=== PATIENT | male | born 1940 ===

== ENCOUNTER 2018-05-25 11:23 | Outpatient (CLI) | payer MEDICARE | END 2018-05-25 11:24 | disposition home or self-care (01) | LOC: C.LAB 11:23 | DX: I50.22 Chronic systolic (congestive) heart failure (principal) ==

== ENCOUNTER 2018-06-06 07:12 | Day surgery (SDC) | payer MEDICARE ==
[2018-05-25 11:37] VITALS: BMI 28.0
[2018-06-06] MEDS ORDERED: Lidocaine 2% MPF (5 ml) Inj ONE (08:29)
[2018-06-06] MEDS ORDERED: Verapamil 2 ML ONE (08:33)
[2018-06-06] MEDS ORDERED: Nitroglycerin 50mg in D5W 50 MG/250 ML BOTTLE IV ONE (08:33)
[2018-06-06] MEDS ORDERED: Iohexol 350mg/ml 100 ML ONE ×2 (08:37→09:32)
[2018-06-06] MEDS ORDERED: Midazolam 2 MG/2 ML VIAL ONE ×2 (09:06→09:23)
[2018-06-06] MEDS ORDERED: Sodium Chloride 0.9% 1,000 ML IV SCH (10:00)
--- NOTE | 2018-06-06 19:01 | CARDCATH ---
PROCEDURE DATE: 06/06/2018 INDICATION: Mr. Mg is a 78-year-old male who was diagnosed with new onset CHF and was having anginal symptom, ischemia, underwent a stress test, echocardiogram, and therefore was brought to the [facility] for evaluation of new onset CHF. PROCEDURES PERFORMED: Left heart catheterization with selective left and right coronary angiogram, left ventriculogram, 6-Thai left radial arterial access and wrist band for hemostasis. ANGIOGRAPHIC FINDINGS: Left main is a large-sized vessel, bifurcates into the left anterior descending and left circumflex coronary artery. The left circumflex is a large-sized vessel and runs in the AV groove, has a highly calcific proximal 85% stenosis. Obtuse marginal is a large-sized vessel, gives off has a highly calcific proximal 75% stenosis. Left anterior descending large-size vessel, highly calcific proximal 65% to 70% stenosis. Diagonal 1 is a moderate-size vessel, highly calcific ostial 90% stenosis. LAD has a mid nonobstructive 70% stenosis. RCA proximal highly calcific 60% and mid highly calcific 95% stenosis. Left ventricular ejection fraction is 15% to 20%. Left ventricular end-diastolic pressure was 22 mmHg. IMPRESSION: Highly calcific proximal triple-vessel disease, severe left ventricular systolic dysfunction. RECOMMENDATIONS: The patient is to be evaluated for CABG versus high-risk PCI with Impella support. Keep the patient on dual antiplatelet therapy in the meantime. Guideline directed therapy for CAD and CHF. Deirck Salguero MD
== END 2018-06-06 13:10 | disposition home or self-care (01) ==
LOC: C.CATHLAB 07:12
PROVIDERS: ATTEND Internal Medicine Interventional Cardiology
DX: I25.119 Atherosclerotic heart disease of native coronary artery with unspecified angina pectoris (principal); I48.0 Paroxysmal atrial fibrillation; I50.22 Chronic systolic (congestive) heart failure; R94.39 Abnormal result of other cardiovascular function study; I11.0 Hypertensive heart disease with heart failure; I25.84 Coronary atherosclerosis due to calcified coronary lesion
CPT/HCPCS: 93458; 99152; 99153; C1769; C1887; C1894; J1644; J2001; J2250; J3010; J7030; Q9967